=== PATIENT | female | born 1950 | race Hispanic/Latino ===

== ENCOUNTER 2016-11-20 15:16 | Emergency (ER) | payer MEDICARE, OTHER ==
[2016-11-20 15:22] VITALS: BMI 30.7
[2016-11-20] MEDS ORDERED: Sodium Chloride 0.9% 1,000 ML IV ONE (15:33)
[2016-11-20 16:03] LABS: BASO # 0.1 K/uL (0.0-0.2); BASO % 1.1 % (0.0-2.0); EOS # 0.3 K/uL (0.0-0.7); EOS % 3.4 % (0.0-4.0); LYMPH # 1.9 K/uL (1.0-4.3); LYMPH % 21.4 % (20.0-40.0); MEAN CORPUSCULAR HEMOGLOBIN 28.5 pg (27.0-31.0); MEAN CORPUSCULAR HGB CONC 32.7 g/dL (33.0-37.0); MEAN PLATELET VOLUME 8.1 fL (7.2-11.7); MONO # 0.6 K/uL (0.0-0.8); MONO % 6.7 % (0.0-10.0); RED CELL DISTRIBUTION WIDTH 13.1 % (11.5-14.5); WHITE BLOOD COUNT 8.7 K/uL (4.8-10.8)
[2016-11-20 16:11] LABS: CHLORIDE 104 mmol/L (98-107)
[2016-11-20 16:12] LABS: POTASSIUM 4.1 mmol/L (3.6-5.2); SODIUM 141 mmol/L (132-148)
[2016-11-20 16:14] LABS: GFR AFRICAN-AMERICAN > 60
[2016-11-20 16:15] LABS: ALB/GLOB RATIO 1.1 (1.0-2.1); ALKALINE PHOSPHATASE 65 U/L (38-126); ALT/SGPT 18 U/L (9-52); AST/SGOT 24 U/L (14-36); BILIRUBIN,TOTAL 0.4 mg/dL (0.2-1.3); BLOOD UREA NITROGEN 20 mg/dL (7-17); CALCIUM 8.9 mg/dl (8.6-10.4); CARBON DIOXIDE 27 mmol/L (22-30); GLUCOSE,RANDOM 99 mg/dL (65-105); TOTAL PROTEIN 7.4 g/dL (6.3-8.3)
--- NOTE | 2016-11-20 16:22 | C.PDOC ---
History Of Present Illness 66-year-old female, presents to the emergency department, with complaints of fever. Patient states she was seen by her PMD for UTI symptoms, who prescribed antibiotics. Patient notes she completed the course yesterday, but continued to be symptomatic, with dysuria and a fever. She was seen in the office by Dr Houston and advised too have an ED evaluation. Pt states that she has also been dizzy for the past 3-4 months intermittently. She notes associated "room spinning" sensation when she moves her head. Denies vomiting, chest pain, shortness of breath, palpitations or any other associated symptoms. No other complaints at this time. Time Seen by Provider: 11/20/16 15:28 Chief Complaint (Nursing): Dizziness/Lightheaded History Per: Patient History/Exam Limitations: no limitations Past Medical History Reviewed: Historical Data, Nursing Documentation, Vital Signs Vital Signs: Last Vital Signs Temp 97.9 F 11/20/16 15:21 Pulse 82 11/20/16 15:21 Resp 20 11/20/16 15:21 BP 106/76 11/20/16 15:21 Pulse Ox 97 11/20/16 16:23 Surgical History: Cholecystectomy Denies: Pacemaker - [facility] Procedures DX ULTRASOUND-DIGESTIVE (12/08/12) ESOPHAGOGASTRODUODENOSCOPY [EGD] W/CLOSED BIOPSY (12/08/12) Family History: States: Unknown Family Hx - Social History Hx Alcohol Use: No Hx Substance Use: No - Immunization History Hx Tetanus Toxoid Vaccination: No Hx Influenza Vaccination: No Hx Pneumococcal Vaccination: No Review Of Systems Except As Marked, All Systems Reviewed And Found Negative. Constitutional: Positive for: Fever Respiratory: Negative for: Shortness of Breath Gastrointestinal: Negative for: Nausea, Vomiting Genitourinary: Positive for: Dysuria, Frequency. Negative for: Vaginal Discharge, Vaginal Bleeding Skin: Negative for: Rash Neurological: Positive for: Dizziness. Negative for: Weakness, Numbness Physical Exam - Physical Exam Appears: Non-toxic, No Acute Distress Skin: Warm, Dry, No Rash Head: Atraumatic, Normacephalic Eye(s): bilateral: Normal Inspection, PERRL, EOMI, Other (NO NYSTAGMUS) Nose: Normal Oral Mucosa: Moist Lips: Normal Appearing Neck: Normal ROM Cardiovascular: Rhythm Regular Respiratory: Normal Breath Sounds, No Accessory Muscle Use Gastrointestinal/Abdominal: Soft, No Tenderness Back: No CVA Tenderness Extremity: Normal ROM Neurological/Psych: Oriented x3, Normal Speech ED Course And Treatment - Laboratory Results Result Diagrams: 11/20/16 15:58 11/20/16 15:58 Lab Interpretation: No Acute Changes Interpretation Of Abnormal: Urine is normal ECG: Interpreted By Me O2 Sat by Pulse Oximetry: 97 Pulse Ox Interpretation: Normal Reevaluation Time: 17:37 Reassessment Condition: Improved (Patient remains comfortable. Is ambulatory in ED without difficulty. Orthostatics normal.) - Physician Consult Information Time Consulting Physician Contacted: 17:37 Physician Contacted: Dottie Houston Outcome Of Conversation: She will follow up with patient in the office. Disposition Counseled Patient/Family Regarding: Studies Performed, Diagnosis, Need For Followup - Disposition Referrals: Dottie Houston MD [Staff Provider] - Disposition: HOME/ ROUTINE Disposition Time: 17:38 Condition: STABLE Additional Instructions: Encourage plenty of fluids and rest. Instructions: Dizziness (ED), Dysuria (ED) - Clinical Impression Clinical Impression: Dizziness, Dysuria - Scribe Statement The provider has reviewed the documentation as recorded by the Hayden Everett All medical record entries made by the Allanibe were at my direction and personally dictated by me. I have reviewed the chart and agree that the record accurately reflects my personal performance of the history, physical exam, medical decision making, and the department course for this patient. I have also personally directed, reviewed, and agree with the discharge instructions and disposition.
[2016-11-20 17:09] LABS: URINE BILIRUBIN NEGATIVE (NEGATIVE); URINE BLOOD NEGATIVE (NEGATIVE); URINE COLOR Straw (YELLOW); URINE GLUCOSE (UA) NORMAL (Normal); URINE KETONE NEGATIVE (NEGATIVE); URINE LEUKOCYTE ESTERASE NEG Leu/uL (Negative); URINE PROTEIN NEGATIVE (NEGATIVE); URINE UROBILINOGEN NORMAL mg/dL (0.2-1.0); WBC URINE < 1 /hpf (0-5)
[2016-11-20 18:06] VITALS: BP 134/80; PULSE 85; RESP 16; TEMP 98.2; O2SAT 98
--- NOTE | 2016-11-22 15:45 | CARD ---
APPROVED REPORT EKG Measurement Heart [id number] <Conclusion> Normal sinus rhythm Normal ECG
== END 2016-11-20 18:05 | disposition home or self-care (01) ==
LOC: C.ER 15:16
DX: R42 Dizziness and giddiness (principal); R30.0 Dysuria
CPT/HCPCS: 80053; 81001; 85025; 87086; 93005; 96360; 99285; J7040